=== PATIENT | male | born 1945 | race Caucasian/White ===

== ENCOUNTER → 2017-05-28 09:40 | Outpatient (CLI) | payer MEDICARE, OTHER | END | disposition home or self-care (01) | LOC: D.CT 09:40 | DX: R10.9 Unspecified abdominal pain (principal); R10.2 Pelvic and perineal pain ==

== ENCOUNTER 2018-04-09 07:56 | Inpatient (IN) | payer MEDICARE, OTHER ==
[~2018-04-09] VITALS: Ht 180.3 cm; Wt 97.2 kg
--- NOTE | ~2018-04-09 | OP ---
PATIENT NAME: CAMILO FARIAS MEDICAL RECORD: [id number] :49 LOCATION:[facility] D.CV03 ADMISSION DATE:04/09/18 SURGEON: VISHAL CALLES MD DATE OF OPERATION: 04/13/2018 SURGEON: Vishal Calles MD ANESTHESIA: General endotracheal, Mor Tejada MD OPERATIONS PERFORMED: Coronary artery bypass utilizing left internal thoracic, left anterior descending, reverse saphenous vein segment to the first diagonal, reverse saphenous vein segment to the obtuse marginal, and reverse saphenous vein segment to the posterolateral branch of the right coronary artery. 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 INDICATIONS FOR OPERATION: Angina pectoris, compelling anatomy. FINDINGS AT OPERATION: The left internal thoracic and reverse saphenous vein graft from the right leg were excellent conduits. The target vessels were of good caliber and quality. ESTIMATED BLOOD LOSS: Cell Saver was used. DESCRIPTION OF PROCEDURE: After informed consent, adequate preoperative medication, and evaluation, the patient was brought to the operating room and placed on the table in supine position. After induction of general endotracheal anesthesia and application of appropriate monitoring devices, chest, neck, abdomen, and both legs were prepped and draped in sterile field utilizing Betadine scrub, alcohol, and Betadine solution. Betadine-impregnated drape was also used. Saphenous vein was harvested from right leg and prepared for reverse saphenous vein grafting. Leg was closed over drains utilizing 3-0 Vicryl and skin tommy. Median sternotomy incision was used and dissection was carried down to the fascia. Hemostasis was maintained with electrocautery. Sternum was divided. Innominate vein was identified and protected. Left internal thoracic was taken down and prepared for grafting. The patient was given a calculated dose of heparin and cannulated in a standard fashion utilizing one aortic, one 2-stage cannula in atrium and inferior vena cava. The patient was placed on cardiopulmonary bypass and cooled to 32 degrees centigrade. A cross-clamp was placed just proximal to the aortic cannula and the patient was given cardioplegic solution through the aortic root. The patient was given cold induction and cold maintenance. The patient was given cold intermittent cardioplegic solution throughout the procedure through the root, through the grafts, or combination of both. The first vessel to be grafted was the posterolateral branch of the right. It was grafted end-to-side utilizing running 7-0 Prolene suture. Graft was measured back to the aorta and a proximal anastomosis was fashioned utilizing running 6-0 Prolene suture. Next, the second obtuse marginal was grafted end-to-side utilizing running 7-0 Prolene suture. The graft was measured back to the aorta and a proximal anastomosis was fashioned utilizing running 6-0 Prolene suture. OPERATIVE REPORT [id number] CAMILO FARIAS Next, the first diagonal was grafted end-to-side utilizing running 7-0 Prolene suture. The graft was measured back to the aorta and a proximal anastomosis was fashioned utilizing running 6-0 Prolene suture. Next, left internal thoracic was brought through a hole in pericardium, sutured to left anterior descending end-to-side utilizing running 8-0 Prolene suture. Pedicle was attached to epicardium with 6-0 Prolene suture. All maneuvers to remove trapped air from heart were performed. The patient was given warm cardioplegic reperfusion and controlled reperfusion. The patient was rewarmed to 37 degrees centigrade. Two atrial and two ventricular pacing wires were placed on the heart and brought through the epigastric area. The patient was weaned from cardiopulmonary bypass. After being stable off bypass, given calculated dose of protamine to reverse the heparin. Chest and mediastinum were irrigated with copious amounts of antibiotic solution and normal saline. There was no active bleeding. A #40 right angle and a #36 chest tubes were brought in through the epigastric area and placed in the mediastinum. A separate left Satya tube was placed to suction drainage. Chest was again irrigated. Instrument and sponge counts were correct times 2. Chest was closed in layers utilizing #7 wire on the sternum, #2 Vicryl on linea alba and pectoralis fascia. Subcutaneous tissue was approximated with 3-0 Vicryl and skin was approximated with 3-0 subcuticular Vicryl. Sterile dressings were applied. The patient tolerated the procedure well and was transferred to cardiovascular recovery in stable condition. TRANSINT:[id number] Voice Confirmation ID: [id number] DOCUMENT ID: [id number] VISHAL CALLES MD at 1234 CC: [id number] DICTATION DATE: 04/13/18 5430 STRIPER SPRAY GUN: 04/13/18 2553 DIS IN 04/21/18 [facility] [address] [place] [address]
--- NOTE | ~2018-04-09 | HEMODYNAMI ---
PATIENT:CAMILO FARIAS MEDICAL RECORD: [id number] : 49 LOCATION:[facility] ADMISSION DATE: 04/09/18 Generatedon:04/09/201811:20 Patient name: CAMILO FARIAS Patient #: [id number] SSN: : 1945 Date of study: 04/09/2018 Page: Of Hemodynamic Procedure Report Patient Data Patient Demographics Procedure consent was obtained First Name: CAMILO Gender: Male Last Name: JARRETT : 1945 [facility] Initial: CAMERON Age: 72 year(s) Patient #: [id number] Race: Unknown Additional ID: [id number] Contact details [address]: [address] [place] [address] DRIVE State: [place] City: [facility] Zip code: [address] Past Medical History Allergies Allergen Reaction Date Comments Reported Other allergy 04/09/2018 amoxicillin Admission Admission Data Admission Date: 04/09/2018 Admission Time: 7:56 Admit Source: Other Lab Results Lab Result Date: 04/09/2018 Lab Result Time: 9:19 Biochemistry Name Units Result Min Max BUN mg/dl 14 --(--*-)-- 7 18 Creatinine mg/dl 1 --(--*-)-- 0.6 1.3 CBC Name Units Result Min Max Hematocrit % 47.8 --(-*--)-- 42 54 Hemoglobin g/dl 16.5 --(--*-)-- 13.5 17.5 Procedure Procedure Types Cath Procedure Diagnostic Procedure LHC LHC w/Coronaries Procedure Description Procedure Date Procedure Date: 04/09/2018 Procedure Start Time: 10:59 Procedure End Time: 11:16 Procedure Staff Name Function Ruben Charles MD Performing Physician Candelario Akhtar RT Monitor Christ Kumar RT Scrub Stanley Ramsey RN Nurse Procedure Data Cath Procedure Fluoroscopy Diagnostic fluoroscopy Total fluoroscopy Time: 7.5 time: 7.5 min min Diagnostic fluoroscopy Total fluoroscopy dose: dose: 348.45 mGy 348.45 mGy Contrast Material Contrast Material Type Amount (ml) Isovue 300 94 Entry Location Entry Primary Successful Side Size Upsize Upsize Entry Closure Hart ccessful Closure Location (Fr) 1 (Fr) 2 (Fr) Remarks Device Remarks Radial Right 6 Fr Mechanical artery Short Compression Estimated blood loss: 5 ml Diagnostic catheters Device Type Used For End Catheter Placement DIAGNOSTIC Brocket 110cm 5 Procedure Fr catheter ([id number]) DIAGNOSTIC AR MOD 5Fr Procedure Catheter ([id number]) Procedure Complications No complications Procedure Medications Medication Administration Route Dosage Oxygen etCO2 Nasal cannula 2 l/min Heparin Flush Bag added to field 2 bags (1000units/500ml NS) 0.9% NaCl I.V. 100 ml/hr Radial Cocktail added to field 1 syringe (Verapomil 2mg/Nitro 400mcg/Heparin 1500units) Fentanyl I.V. 50 mcg Versed I.V. 1 mg Fentanyl I.V. 50 mcg Versed I.V. 1 mg Radial Cocktail I.A. 1 syringe (Verapomil 2mg/Nitro 400mcg/Heparin 1500units) Hemodynamics Rest HGB: 16.5 (g/dl) Heart Rate: 48 (bpm) Pressure Samples Time Site Value (mmHg) Purpose Heart Use Rate(bpm) 11:04 LV 104/9,21 EDP 45 Gradients Valve Time Site Site Mean SEP/DFP Peak To Heart Use 1 2 (mmHg) (sec/min) Peak Rate (mmHg) (bpm) Aortic 11:04 LV AO 62 Snapshots Pre Cath Intra NCS Post Cath Vital Signs Time Heart Resp SPO2 etCO2 NIBP (mmHg) Rhythm Pain Sedation Rate (ipm) (%) (mmHg) Status Level (bpm) 10:41:57 57 17 99 0 158/77(129) NSR 0 (11) 10(A) , No pain 10:46:11 49 16 94 36 144/75(117) NSR 0 (11) 10(A) , No pain 10:50:27 45 16 96 36 133/77(106) NSR 0 (11) 10(A) , No pain 10:54:48 47 16 97 36.8 129/69(99) NSR 0 (11) 10(A) , No pain 10:59:02 45 16 95 33.8 118/70(98) NSR 0 (11) 10(A) , No pain 11:03:20 48 16 97 30 96/60(78) NSR 0 (11) 9(A) , No pain 11:07:27 46 17 95 21 103/60(84) NSR 0 (11) 9(A) , No pain 11:12:26 48 16 96 43.5 115/67(95) NSR 0 (11) 9(A) , No pain 11:16:39 50 16 96 37.5 121/69(101) NSR 0 (11) 9(A) , No pain Medications Time Medication Route Dose Verified Delivered Reason Notes Effectiveness by by 10:43:48 Oxygen etCO2 2 l/min Ruben Stanley Per Nasal Araceli Ramsey RN physician cannula 10:43:57 Heparin Flush added 2 bags Ruben Stanley used for Bag to Araceli Ramsey RN procedure (1000units/500ml field YEBOAH NS) 10:44:07 0.9% NaCl I.V. 100 Ruben Stanley Per ml/hr Araceli Ramsey RN physician 10:44:15 Radial Cocktail added 1 Ruben Stanley used for (Verapomil to syringe Araceli Ramsey RN procedure 2mg/Nitro field YEBOAH 400mcg/Heparin 1500units) 10:56:18 Fentanyl I.V. 50 mcg Ruben Stanley for sedation Araceli Ramsey RN, MD 10:56:26 Versed I.V. 1 mg Ruben Stanley for sedation Araceli Ramsey RN, MD 10:59:20 Fentanyl I.V. 50 mcg Ruben Stanley for sedation Araceli Ramsey RN, MD 10:59:23 Versed I.V. 1 mg Ruben Stanley for sedation Araceli Ramsey RN, MD 11:01:31 Radial Cocktail I.A. 1 Ruben Ruben for (Verapomil syringe Araceli Charles MD vasodilation 2mg/Lana YEBOAH 400mcg/Heparin 1500units) Procedure Log Time Note 10:20:23 Christ EL(R) sent for patient. Start room use. 10:34:05 Informed consent obtained and on chart 10:34:08 Admit Source: Other 10:34:22 Diagnostic Cath status Elective 10:34:28 Time tracking: Regular hours (M-F 7:00 - 5:00) 10:34:32 Plan of Care:Hemodynamics will remain stable., Cardiac rhythm will remain stable., Comfort level will be maintained., Respiratory function will remain adequate., Patient/ family verbilizes understanding of procedure., Procedure tolerated without complication., Recovers from procedure without complications.. 10:34:37 Patient received from Pre/Post Procedure Room to CCL 3 Alert and oriented. Tansferred to table in Supine position. 10:34:38 Warm blankets applied, and nicole hugger turned on for patient comfort. 10:34:38 Correct patient and procedure confirmed by team. 10:34:39 ECG and BP/O2 sat monitors applied to patient. 10:40:44 Vital chart was started 10:43:48 Oxygen 2 l/min etCO2 Nasal cannula was administered by Stanley Ramsey RN; Per physician; 10:43:57 Heparin Flush Bag (1000units/500ml NS) 2 bags added to field was administered by Stanley Ramsey RN; used for procedure; 10:44:07 0.9% NaCl 100 ml/hr I.V. was administered by Stanley Ramsey RN; Per physician; 10:44:15 Radial Cocktail (Verapomil 2mg/Nitro 400mcg/Heparin 1500units) 1 syringe added to field was administered by Stanley Ramsey RN; used for procedure; 10:45:45 Baseline sample Acquired. 10:45:49 Rhythm: sinus rhythm 10:45:56 Full Disclosure recording started 10:46:07 H&P Date Dictated: 04/07/2018 Within 30 days and on chart., H&P Addendum completed by physician on day of procedure. (MUST COMPLETE FOR ALL OUTPATIENTS). 10:46:36 Pre-procedure instructions explained to patient. 10:46:37 Pre-op teaching completed and patient verbalized understanding. 10:46:38 Family in waiting room. 10:46:40 Patient NPO since Midnight. 10:46:54 Patient allergic to Other allergyamoxicillin 10:46:55 Is the patient allergic to Iodine/contrast media? No. 10:47:09 Is patient on blood thinner?Yes 10:47:17 ACC The patient was administered the following blood thiners within the last 24 hours: ACCPlavix 10:47:19 Patient diabetic? No. 10:47:22 Previous problem with sedation/anesthesia? No ? 10:47:23 Snore? Yes 10:47:24 Sleep apnea? No 10:47:25 Deviated septum? No 10:47:26 Opens mouth fully? Yes 10:47:26 Sticks out tongue? Yes 10:47:28 Airway obstruction? No ? 10:47:30 Dentures? No ? 10:47:32 Modified Luis's test Ulnar < 7 seconds 10:47:33 Patient pain scale 0/10 ?. 10:47:37 IV patent on arrival in left forearm with 0.9% NaCl at [facility]. 10:48:22 Lab Result : BUN 14 mg/dl 10:48:22 Lab Result : Hemoglobin 16.5 g/dl 10:48:22 Lab Result : Creatinine 1 mg/dl 10:48:22 Lab Result : Hematocrit 47.8 % 10:48:24 Lab results completed and on chart. 10:48:26 Right Radial & Right Groin area was prepped with chlora-prep and draped in sterile fashion 10:48:27 Alarms reviewed by R. N. 10:48:27 Sharps counted by scrub and verified by R.N. 10:48:30 Use device set Radial Dx or PCI 10:48:31 ACIST Syringe (18611) opened to sterile field. 10:48:32 Medline Cath Pack ([id number]) opened to sterile field. 10:48:34 Bag Decanter (2002) opened to sterile field. 10:48:35 ACIST Hand Control (25434) opened to sterile field. 10:48:36 ACIST Manifold (14730) opened to sterile field. 10:48:37 Tegaderm 4 x 4 (1626W) opened to sterile field. 10:48:38 MBrace Wrist Support ([id number]) opened to sterile field. 10:48:39 SHEATH 6Fr Prelude Radial ([id number]) opened to sterile field. 10:48:40 DIAGNOSTIC WIRE .035 260cm J wire (608651) opened to sterile field. 10:50:47 Physician paged 10:54:53 Physician arrived 10:54:53 --------ALL STOP TIME OUT------ 10:54:54 Final Timeout: patient, procedure, and site verified with staff and physician. All members of the team are in agreement. 10:54:56 Right Radial & Right Groin site verified by team. 10:54:59 Physical assessment completed. ASA score P 2 - A patient with mild systemic disease as per Ruben Charles MD. 10:55:01 Sedation plan: IV Moderate Sedation Medication:Versed, Fentanyl 10:56:18 Fentanyl 50 mcg I.V. was administered by Stanley Ramsey RN; for sedation; 10:56:26 Versed 1 mg I.V. was administered by Stanley Ramsey RN; for sedation; 10:57:40 Zero performed for pressure channel P1 10:59:20 Fentanyl 50 mcg I.V. was administered by Stanley Ramsey RN; for sedation; 10:59:23 Versed 1 mg I.V. was administered by Stanley Ramsey RN; for sedation; 10:59:31 Procedure started. 10:59:36 Local anesthetic to right radial artery with Lidocaine 2% by Ruben Charles MD.INITIAL ACCESS ONLY 10:59:44 A 6 Fr Short sheath was inserted into the Right Radial artery 11:01:30 A DIAGNOSTIC Brocket 110cm 5 Fr catheter ([id number]) was advanced over the wire and used for Procedure. 11:01:31 Radial Cocktail (Verapomil 2mg/Nitro 400mcg/Heparin 1500units) 1 syringe I.A. was administered by Ruben Charles MD; for vasodilation; 11:04:18 LV gram done using ARCE 11:04:20 Injector settings: Ml/sec: 10, Volume: 20, 11:04:28 EF : 65 % 11:04:34 LV hemodynamics recorded. 11:05:19 LCA angiography performed. 11:11:51 Catheter exchanged over wire. 11:12:11 A DIAGNOSTIC AR MOD 5Fr Catheter ([id number]) was advanced over the wire and used for Procedure. 11:13:12 RCA angiography performed. 11:13:39 Catheter removed. 11:13:48 TR BAND Standard ([id number]) opened to sterile field. 11:13:56 Sheath removed intact; hemostasis achieved with Mechanical Compression to the Right Radial artery. 11:13:58 Procedure ended.(Physican Out) 11:14:37 Fluoroscopy time 07.50 minutes. 11:14:57 Fluoroscopy dose: 348.45 mGy 11:14:57 Flurop Dose total: 348.45 11:15:01 Contrast amount:Isovue 300 94ml. 11:15:03 Sharps counted by scrub and verified by R.N. 11:15:05 TR band inflated with 12cc of air. 11:15:06 Insertion/operative site no bleeding no hematoma. 11:15:11 Post right radial artery:stable, soft, clean and dry 11:15:27 Post Procedure Pulses reassessed and unchanged 11:15:29 Post-procedure physical assessment completed. ASA score P 2 - A patient with mild systemic disease as per Ruben Charles MD. 11:15:31 Post procedure rhythm: unchanged. 11:15:33 Estimated blood loss: 5 ml 11:15:35 Post procedure instruction explained to patient.Patient verbalizes understanding. 11:15:35 Patient needs reinforcement of post procedure teaching. 11:16:27 Procedure and supply charges have been captured, reviewed, submitted and are correct. 11:16:29 Procedure Complication : No complications 11:16:30 Vital chart was stopped 11:16:31 See physician's report for complete and final results. 11:16:32 Report given to Pre/Post Procedure Room. 11:16:34 Patient transfered to Pre/Post Procedure Room with Stretcher. 11:16:36 Procedure ended. 11:16:36 Full Disclosure recording stopped 11:16:39 End room use (Document Last) Device Usage Item Name Manufacture Quantity Catalog Number Hospital Part Current M inimal Lot# / Charge Number Stock Stock Serial# Code ACIST Syringe Acist 1 13550 174926 373661 651925 2 0 (02148) [employer] Medline Cath Cardinal 1 [id number] 539074 94043 335472 5 Pack Health ([id number]) Bag Decanter Microtek 1 197989 61311 053196 5 (2001S) Medical Inc. ACIST Hand Acist 1 64270 807947 756518 834309 5 Control (38398) [employer] Inc ACIST Manifold Acist 1 03752 901106 556346 788514 5 (73451) Medical Systems Inc Tegaderm 4 x 4 3M 1 1626W 746148 383460 110733 5 (1626W) MBrace Wrist Advanced 1 [id number] 740876 92988 635901 5 Support Vascular ([id number]) Dynamics SHEATH 6Fr Merit 1 [id number] 090697 964158 188057 5 Prelude Radial Medical ([id number]) DIAGNOSTIC WIRE [facility] Terry 1 668788 932527 994442 583520 3 0 .035 260cm J wire (209478) DIAGNOSTIC Terumo 1 50-7211 636768 393225 544037 5 Brocket 110cm 5 Fr catheter (979034) DIAGNOSTIC AR Cardinal 1 [id number] 156896 823734 478896 1 5 MOD 5Fr Health Catheter (322459Y) TR BAND Terumo 1 [id number] 860003 015255 063135 4 0 Standard ([id number]) Signature Audit [place] Stage Time Signature Unsigned Intra-Procedure 04/09/2018 Candelario Akhtar 11:20:08 AM RT(R) Signatures Monitor : Candelario Akhtar RT Signature : Date : Time : [place] [id number] [place] [address]
--- NOTE | ~2018-04-09 | OP ---
PATIENT NAME: CAMILO FARIAS MEDICAL RECORD: [id number] :49 LOCATION:D.M2 D.2117 ADMISSION DATE:04/09/18 SURGEON: CHAD STONE MD DATE OF OPERATION: 04/09/2018 PROCEDURE: Left heart catheterization, LV gram, coronary angiogram. TRACK LINER OPERATOR: Chad Stone MD PROCEDURE IN DETAIL: The patient was brought to cardiac catheterization lab in stable condition. Both groins and right wrist were sterilely prepped and draped. The patient had a 6-Pakistani sheath placed in the right radial artery using modified Seldinger technique. We then utilized a 5-Pakistani diagnostic catheter to intubate the left ventricular cavity, the left coronary artery, and the right coronary artery respectively. HEMODYNAMICS: Left ventricular ejection fraction 60%. End-diastolic pressure is normal. There is no significant mitral regurgitation. There is no gradient across the aortic valve. FINDINGS: 1. The left main has distal 80% to 90% stenosis. 2. The LAD has diffuse atherosclerotic changes and moderate calcification in the mid vessel at 60% stenosis. The mid diagonal has an ostial 70% stenosis. 3. The circumflex is a nondominant vessel, giving rise to a terminal obtuse marginal branch that has superior and inferior branch. The superior branch has an ostial 80% stenosis. 4. The RCA is a 95% stenosis ostially. It looks like there may be a stent there, but it is hard to tell if that is stent or calcification, fairly significant calcification. In the mid vessel, it is heavily calcified with an 80% stenosis. Posterior descending artery itself appears to be free of significant disease. The posterolateral branch has an ostial 60% to 70% stenosis. IMPRESSION: Severe multivessel coronary artery disease including left main disease. RECOMMENDATION: Coronary artery bypass grafting. The patient has preserved LV systolic function. Ejection fraction 60%. Dr. Calles has been contacted. We are going to decide whether to keep him through the hospitalization to do the surgery or whether to be able to send him home. TRANSINT:[id number] Voice Confirmation ID: [id number] DOCUMENT ID: [id number] CHAD STONE MD at 1011 CC: [id number] DICTATION DATE: 04/09/18 1128 HUMAN RESOURCES RECORDS CLERK: 04/09/18 1202 ADM IN [facility] [address] [place] [address]
--- NOTE | ~2018-04-09 | TEE ---
PATIENT:CAMILO FARIAS MEDICAL RECORD: [id number] LOCATION:[place] [address] AGE OF PATIENT: 72 ADMISSION DATE: 04/09/18 SEX: M REFERRING PHYSICIAN: INTERPRETING PHYSICIAN: CHAD STONE MD TRANSESOPHAGEAL ECHOCARDIOGRAM Date: 04/13/18 CRYSTAL CHARGE Y INDICATIONS: CABG PREMEDICATIONS: PATIENT'S RESPONSE PROCEDURE DOPPLER MEASUREMENTS: LVIT LA PA RA LVOT RVOT Asc. Ao AV Gradient Peak AV Mean AV Area MV Gradient Peak MV Mean MV Area INTERPRETATION: LVd: 4.8 cm LVs: 3.0 cm Doppler: 2-D: COLOR FLOW DOPPLER NORMAL SALINE STUDY: MISCELLANOUS: DIAGNOSIS: PLAN: Brokerage Office Manager:4 Dr. Stone Antitank Assault Gunner: Saundra ALVARENGA COMMENTS: DATE OF SERVICE: PROCEDURE: Intraoperative transesophageal echocardiogram. FINDINGS: The pictures show catheter artifact in the right atrium and right ventricle. The right atrium and right ventricle are mildly dilated. Aortic valve appears to be normal structure and function. The left ventricle also appears to be normal structure and function. There is no evidence of regional wall motion abnormalities. The postoperative ejection fraction is difficult to TRANSESOPHAGEAL ECHOCARDIOGRAM REPORT [id number] CAMILO FARIAS visualize, but appears to be hyperdynamic with an ejection fraction of 65% to 70%. TRANSINT:[id number] Voice Confirmation ID: [id number] DOCUMENT ID: [id number] at 1458 CC: [id number] DICTATION DATE: 04/14/18 0842 OCCUPATIONAL THERAPY INSTRUCTOR: 04/14/18 0912 ADM IN [place] [id number] [place] [address]
[2018-04-09] MEDS ORDERED: RESTORIL15 MG PO (09:20)
[2018-04-09] MEDS ORDERED: BAYER CHEWABLE81 MG PO (09:20)
[2018-04-09] MEDS ORDERED: NORVASC10 MG PO (09:21)
[2018-04-09] MEDS ORDERED: PRAVACHOL20 MG PO (09:21)
[2018-04-09] MEDS ORDERED: ZEBETA10 MG PO (09:21)
[2018-04-09 09:22] LABS: BASOPHILS 0.2 % (0-2); EOSINOPHILS 3.3 % (0-7); HEMATOCRIT 47.8 % (42.0-54.0); HEMOGLOBIN 16.5 g/dL (13.5-17.5); IMMATURE GRANULOCYTES 0.7 % (0-5); LYMPHOCYTES 27.4 % (15-50); MCH 29.3 pg (26.0-34.0); MCHC 34.5 g/dL (31.0-37.0); MCV 84.9 fL (80.0-100.0); MEAN PLATELET VOLUME 10.2 fL (7.4-10.4); MONOCYTES 11.7 % (2-11); NEUTROPHILS 56.7 % (40-80); PLATELET COUNT 164 10x3/uL (130-400); RBC 5.63 10x6/uL (4.20-6.10); RDW 12.9 % (11.5-14.5); WBC 8.8 10x3/uL (4.8-10.8)
[2018-04-09 09:26] VITALS: BP 158/75; BMI 29.3
[2018-04-09 09:37] LABS: CALC OSMOLALITY 277 mosm/kg (275-300); CALCIUM 8.8 mg/dL (8.5-10.1); CARBON DIOXIDE 28.7 mmol/L (21.0-32.0); CHLORIDE - SERUM 104 mmol/L (98-107); GLUCOSE 117 mg/dL (74-106); POTASSIUM - SERUM 4.1 mmol/L (3.5-5.1); SODIUM 138 mmol/L (136-145); UREA NITROGEN 14 mg/dL (7-18); eGFR NON AFRICAN AMERICAN 78 mL/min (90-120)
[2018-04-09 13:34] VITALS: BP 144/74; BMI 29.3
[2018-04-09 16:21] VITALS: BP 142/72
[2018-04-09 21:09] VITALS: BP 134/77
[2018-04-10 05:48] LABS: BASOPHILS 0.2 % (0-2); EOSINOPHILS 3.7 % (0-7); HEMATOCRIT 44.6 % (42.0-54.0); HEMOGLOBIN 14.8 g/dL (13.5-17.5); IMMATURE GRANULOCYTES 0.7 % (0-5); LYMPHOCYTES 22.6 % (15-50); MCH 28.5 pg (26.0-34.0); MCHC 33.2 g/dL (31.0-37.0); MCV 85.8 fL (80.0-100.0); MEAN PLATELET VOLUME 10.6 fL (7.4-10.4); MONOCYTES 12.8 % (2-11); PLATELET COUNT 138 10x3/uL (130-400); RDW 12.8 % (11.5-14.5); WBC 8.4 10x3/uL (4.8-10.8)
[2018-04-10 05:50] VITALS: BP 139/77
[2018-04-10 05:51] LABS: APTT 26.7 SECONDS (22.8-39.4); INR 1.11 (0.85-1.17); PROTIME 13.9 SECONDS (11.6-15.0)
[2018-04-10 06:13] LABS: ALBUMIN 3.3 g/dL (3.4-5.0); ANION GAP 8.1 mmol/L (8-16); BILIRUBIN - TOTAL 0.99 mg/dL (0.2-1.3); CALCIUM 8.1 mg/dL (8.5-10.1); CARBON DIOXIDE 29.1 mmol/L (21.0-32.0); CREATININE - SERUM 1.1 mg/dL (0.6-1.3); PHOSPHOROUS 3.1 mg/dL (2.5-4.9); POTASSIUM - SERUM 4.2 mmol/L (3.5-5.1); PROTEIN - SERUM 6.3 g/dL (6.4-8.2); T4 THYROXIN - FREE 0.88 ng/dL (0.76-1.46); THYROID STIMULATING HORMONE 2.02 uIU/mL (0.36-3.74); URIC ACID 5.6 mg/dL (2.6-7.2)
[2018-04-10 08:25] VITALS: BP 131/68
[2018-04-10 10:05] VITALS: BMI 28.6
[2018-04-10 11:24] VITALS: Ht 180.3 cm; Wt 97.2 kg
[2018-04-10 11:43] VITALS: BP 146/69
[2018-04-10 14:16] LABS: APPEARANCE CLEAR (CLEAR); COLOR YELLOW (YELLOW)
[2018-04-10 14:17] LABS: BILIRUBIN NEGATIVE (NEGATIVE); GLUCOSE NEGATIVE (NEGATIVE); KETONE NEGATIVE (NEGATIVE); NITRITE NEGATIVE (NEGATIVE); PROTEIN NEGATIVE (NEGATIVE); UROBILINOGEN NORMAL (NORMAL)
[2018-04-10 14:18] LABS: AMORPHOUS SEDIMENT <1+ /lpf (NONE SEEN); MUCUS <1+ /lpf (NONE SEEN)
[2018-04-10 15:10] VITALS: BP 136/71
[2018-04-10 20:00] VITALS: BP 136/70
[2018-04-11] VITALS: BP 129/64
[2018-04-11 04:00] VITALS: BP 106/82
[2018-04-11 08:09] VITALS: BP 163/76
[2018-04-11 08:36] LABS: PLT FUNCT.(P2Y12) PLAVIX 182 PRU (194-418)
[2018-04-11 11:46] VITALS: BP 153/75
[2018-04-11 15:14] VITALS: BP 141/69
[2018-04-11 20:01] VITALS: BP 113/68
[2018-04-12] VITALS (7 sets, daily range): BP systolic 115–146; BP diastolic 67–79
[2018-04-13] VITALS (39 sets, daily range): BP systolic 91–146; BP diastolic 51–77
[2018-04-13 07:51] LABS: PLT FUNCT.(P2Y12) PLAVIX 257 PRU (194-418)
[2018-04-13 14:18] LABS: HEMATOCRIT 34.2 % (42.0-54.0); HEMOGLOBIN 11.8 g/dL (13.5-17.5); MCH 28.9 pg (26.0-34.0); MCHC 34.5 g/dL (31.0-37.0); MCV 83.6 fL (80.0-100.0); MEAN PLATELET VOLUME 9.9 fL (7.4-10.4); RBC 4.09 10x6/uL (4.20-6.10); RDW 12.7 % (11.5-14.5); WBC 16.7 10x3/uL (4.8-10.8)
[2018-04-13 14:29] LABS: CHLORIDE - SERUM 111 mmol/L (98-107); POTASSIUM - SERUM 4.1 mmol/L (3.5-5.1); SODIUM 146 mmol/L (136-145); UREA NITROGEN 16 mg/dL (7-18); eGFR NON AFRICAN AMERICAN 78 mL/min (90-120)
[2018-04-13 14:36] LABS: CALC OSMOLALITY 296 mosm/kg (275-300); GLUCOSE 192 mg/dL (74-106)
[2018-04-13 14:38] LABS: CALCIUM 6.5 mg/dL (8.5-10.1)
[2018-04-13 14:41] LABS: INR 1.67 (0.85-1.17); PROTIME 18.8 SECONDS (11.6-15.0)
[2018-04-13 14:58] LABS: APTT 39.1 SECONDS (22.8-39.4)
[2018-04-14] VITALS (94 sets, daily range): BP systolic 92–137; BP diastolic 48–76
[2018-04-14 06:24] LABS: MCH 28.5 pg (26.0-34.0); MCHC 33.3 g/dL (31.0-37.0); MEAN PLATELET VOLUME 10.3 fL (7.4-10.4); PLATELET COUNT 85 10x3/uL (130-400); RDW 13.4 % (11.5-14.5)
[2018-04-14 06:37] LABS: HEMATOCRIT 26.7 % (42.0-54.0); HEMOGLOBIN 8.9 g/dL (13.5-17.5); MCV 85.6 fL (80.0-100.0); RBC 3.12 10x6/uL (4.20-6.10); WBC 10.4 10x3/uL (4.8-10.8)
[2018-04-14 06:44] LABS: ALBUMIN 3.6 g/dL (3.4-5.0); ANION GAP 11.7 mmol/L (8-16); BILIRUBIN - TOTAL 0.95 mg/dL (0.2-1.3); CALCIUM 7.9 mg/dL (8.5-10.1); CARBON DIOXIDE 27.9 mmol/L (21.0-32.0); POTASSIUM - SERUM 4.6 mmol/L (3.5-5.1); PROTEIN - SERUM 5.1 g/dL (6.4-8.2)
[2018-04-14 06:46] LABS: CREATININE - SERUM 1.4 mg/dL (0.6-1.3)
[2018-04-14 07:56] LABS: PLATELET ESTIMATE DECREASED
[2018-04-14 16:22] LABS: HEMOGLOBIN 9.1 g/dL (13.5-17.5); MCH 28.4 pg (26.0-34.0); MCHC 32.5 g/dL (31.0-37.0); MCV 87.5 fL (80.0-100.0); MEAN PLATELET VOLUME 10.4 fL (7.4-10.4); RBC 3.2 10x6/uL (4.20-6.10); RDW 13.6 % (11.5-14.5)
[2018-04-14 16:25] LABS: WBC 15.9 10x3/uL (4.8-10.8)
[2018-04-14 16:36] LABS: CALCIUM 7.5 mg/dL (8.5-10.1); CARBON DIOXIDE 28.5 mmol/L (21.0-32.0); CREATININE - SERUM 1.6 mg/dL (0.6-1.3); POTASSIUM - SERUM 4.5 mmol/L (3.5-5.1)
[2018-04-15] VITALS (48 sets, daily range): BP systolic 95–138; BP diastolic 61–81
[2018-04-15 06:33] LABS: ALBUMIN 3.4 g/dL (3.4-5.0); ANION GAP 15.3 mmol/L (8-16); BILIRUBIN - TOTAL 0.6 mg/dL (0.2-1.3); CALCIUM 7.9 mg/dL (8.5-10.1); POTASSIUM - SERUM 4.3 mmol/L (3.5-5.1); PROTEIN - SERUM 5.6 g/dL (6.4-8.2)
[2018-04-15 06:37] LABS: CREATININE - SERUM 2.2 mg/dL (0.6-1.3)
[2018-04-15 06:50] LABS: HEMATOCRIT 28.5 % (42.0-54.0); HEMOGLOBIN 9.4 g/dL (13.5-17.5); MCH 28.6 pg (26.0-34.0); MCV 86.6 fL (80.0-100.0); MEAN PLATELET VOLUME 10.7 fL (7.4-10.4); RBC 3.29 10x6/uL (4.20-6.10); RDW 13.7 % (11.5-14.5); WBC 20.1 10x3/uL (4.8-10.8)
[2018-04-16] VITALS (26 sets, daily range): BP systolic 104–144; BP diastolic 57–84
[2018-04-16 06:10] LABS: HEMATOCRIT 25.5 % (42.0-54.0); HEMOGLOBIN 8.6 g/dL (13.5-17.5); MCH 28.7 pg (26.0-34.0); MCHC 33.7 g/dL (31.0-37.0); MEAN PLATELET VOLUME 10.7 fL (7.4-10.4); RDW 13.5 % (11.5-14.5); WBC 15.8 10x3/uL (4.8-10.8)
[2018-04-16 06:30] LABS: ALBUMIN 2.9 g/dL (3.4-5.0); ANION GAP 10.9 mmol/L (8-16); BILIRUBIN - TOTAL 0.97 mg/dL (0.2-1.3); CALCIUM 7.4 mg/dL (8.5-10.1); CARBON DIOXIDE 27.1 mmol/L (21.0-32.0); PROTEIN - SERUM 5.2 g/dL (6.4-8.2)
[2018-04-16 06:34] LABS: CREATININE - SERUM 1.5 mg/dL (0.6-1.3)
[2018-04-17] VITALS (24 sets, daily range): BP systolic 104–141; BP diastolic 61–87
[2018-04-17 06:15] LABS: ALBUMIN 2.8 g/dL (3.4-5.0); ANION GAP 10.3 mmol/L (8-16); BILIRUBIN - TOTAL 1.28 mg/dL (0.2-1.3); CALCIUM 7.3 mg/dL (8.5-10.1); CREATININE - SERUM 1.4 mg/dL (0.6-1.3); POTASSIUM - SERUM 4.3 mmol/L (3.5-5.1); PROTEIN - SERUM 5.3 g/dL (6.4-8.2)
[2018-04-17 07:39] LABS: HEMOGLOBIN 8.7 g/dL (13.5-17.5); MCH 28.6 pg (26.0-34.0); MCHC 33.5 g/dL (31.0-37.0); MCV 85.5 fL (80.0-100.0); MEAN PLATELET VOLUME 11.2 fL (7.4-10.4); RBC 3.04 10x6/uL (4.20-6.10); RDW 13.7 % (11.5-14.5); WBC 17.1 10x3/uL (4.8-10.8)
[2018-04-18] VITALS (24 sets, daily range): BP systolic 110–138; BP diastolic 56–85
[2018-04-18 06:04] LABS: HEMATOCRIT 25.6 % (42.0-54.0); HEMOGLOBIN 8.5 g/dL (13.5-17.5); MCH 28.4 pg (26.0-34.0); MCHC 33.2 g/dL (31.0-37.0); MCV 85.6 fL (80.0-100.0); MEAN PLATELET VOLUME 9.4 fL (7.4-10.4); RBC 2.99 10x6/uL (4.20-6.10); RDW 13.5 % (11.5-14.5); WBC 15.1 10x3/uL (4.8-10.8)
[2018-04-18 06:47] LABS: ALBUMIN 2.5 g/dL (3.4-5.0); BILIRUBIN - TOTAL 1.31 mg/dL (0.2-1.3); CALCIUM 7.2 mg/dL (8.5-10.1); CARBON DIOXIDE 28.5 mmol/L (21.0-32.0); CREATININE - SERUM 1.3 mg/dL (0.6-1.3); PROTEIN - SERUM 5.1 g/dL (6.4-8.2)
[2018-04-18 06:48] LABS: ANION GAP 10.1 mmol/L (8-16); POTASSIUM - SERUM 3.6 mmol/L (3.5-5.1)
[2018-04-19] VITALS (24 sets, daily range): BP systolic 90–135; BP diastolic 56–86
[2018-04-19 06:35] LABS: HEMATOCRIT 25.7 % (42.0-54.0); HEMOGLOBIN 8.3 g/dL (13.5-17.5); MCHC 32.3 g/dL (31.0-37.0); MCV 86.8 fL (80.0-100.0); MEAN PLATELET VOLUME 9.7 fL (7.4-10.4); RBC 2.96 10x6/uL (4.20-6.10); RDW 13.7 % (11.5-14.5); WBC 12.3 10x3/uL (4.8-10.8)
[2018-04-19 06:52] LABS: ALBUMIN 2.4 g/dL (3.4-5.0); BILIRUBIN - TOTAL 1.26 mg/dL (0.2-1.3); CARBON DIOXIDE 29.3 mmol/L (21.0-32.0); CREATININE - SERUM 1.3 mg/dL (0.6-1.3); POTASSIUM - SERUM 3.3 mmol/L (3.5-5.1)
[2018-04-19 06:53] LABS: CALCIUM 6.9 mg/dL (8.5-10.1)
[2018-04-20] VITALS (23 sets, daily range): BP systolic 94–152; BP diastolic 55–80
[2018-04-20 06:15] LABS: HEMATOCRIT 25.1 % (42.0-54.0); HEMOGLOBIN 8.2 g/dL (13.5-17.5); MCH 28.3 pg (26.0-34.0); MCHC 32.7 g/dL (31.0-37.0); MCV 86.6 fL (80.0-100.0); MEAN PLATELET VOLUME 9.3 fL (7.4-10.4); RBC 2.9 10x6/uL (4.20-6.10); RDW 13.8 % (11.5-14.5); WBC 11.9 10x3/uL (4.8-10.8)
[2018-04-20 06:32] LABS: ALBUMIN 2.2 g/dL (3.4-5.0); ANION GAP 8.1 mmol/L (8-16); BILIRUBIN - TOTAL 1.15 mg/dL (0.2-1.3); CARBON DIOXIDE 30.1 mmol/L (21.0-32.0); CREATININE - SERUM 1.2 mg/dL (0.6-1.3); POTASSIUM - SERUM 3.2 mmol/L (3.5-5.1)
[2018-04-20 06:33] LABS: CALCIUM 6.9 mg/dL (8.5-10.1)
[2018-04-21] VITALS (10 sets, daily range): BP systolic 104–138; BP diastolic 6–76
[2018-04-21 05:57] LABS: BASOPHILS 0.2 % (0-2); EOSINOPHILS 2.8 % (0-7); HEMOGLOBIN 9.3 g/dL (13.5-17.5); IMMATURE GRANULOCYTES 7.5 % (0-5); LYMPHOCYTES 11.7 % (15-50); MCH 28.7 pg (26.0-34.0); MCHC 33.2 g/dL (31.0-37.0); MCV 86.4 fL (80.0-100.0); MEAN PLATELET VOLUME 9.2 fL (7.4-10.4); MONOCYTES 11.3 % (2-11); NEUTROPHILS 66.5 % (40-80); RBC 3.24 10x6/uL (4.20-6.10); RDW 14.1 % (11.5-14.5)
[2018-04-21 05:58] LABS: PLATELET COUNT 300 10x3/uL (130-400)
[2018-04-21 06:16] LABS: ANION GAP 8.9 mmol/L (8-16); CALCIUM 7.3 mg/dL (8.5-10.1); CARBON DIOXIDE 27.2 mmol/L (21.0-32.0); CREATININE - SERUM 1.1 mg/dL (0.6-1.3); POTASSIUM - SERUM 4.1 mmol/L (3.5-5.1)
[2018-04-21] MEDS ORDERED: HEMOCYTE PLUS C1 CAP PO (09:44)
[2018-04-21] MEDS ORDERED: CORDARONE200 MG PO (09:48)
[2018-04-21] MEDS ORDERED: LASIX40 MG PO (09:48)
[2018-04-21] MEDS ORDERED: COLACE100 MG PO (09:49)
[2018-04-21] MEDS ORDERED: K-DUR20 MEQ PO (09:49)
[2018-04-21] MEDS ORDERED: LEVAQUIN750 MG PO (09:50)
[2018-04-21] MEDS ORDERED: ULTRAM50 MG PO (09:51)
== END 2018-04-21 11:34 | disposition home or self-care (01) | DRG 234 ==
LOC: D.M2 07:56 → D.CATH 07:56 → D.M2 13:05 → D.CATH 16:17 → D.CVICU 16:17 → D.SDCHOLD 04-11 02:18 → D.M2 04-11 02:18 → D.CVICU 04-13 10:46
PROVIDERS: Internal Medicine Cardiovascular Disease
PROC: B2151ZZ Fluoroscopy of Left Heart using Low Osmolar Contrast (ICD-10-PCS; 2018-04-09)
PROC: 4A023N7 Measurement of Cardiac Sampling and Pressure, Left Heart, Percutaneous Approach (ICD-10-PCS; 2018-04-09)
PROC: B2111ZZ Fluoroscopy of Multiple Coronary Arteries using Low Osmolar Contrast (ICD-10-PCS; principal; 2018-04-09 10:00)
PROC: 02100ZC Bypass Coronary Artery, One Artery from Thoracic Artery, Open Approach (ICD-10-PCS; 2018-04-13)
PROC: 021209W Bypass Coronary Artery, Three Arteries from Aorta with Autologous Venous Tissue, Open Approach (ICD-10-PCS; 2018-04-13)
PROC: 06BP0ZZ Excision of Right Saphenous Vein, Open Approach (ICD-10-PCS; 2018-04-13)
PROC: 5A1221Z Performance of Cardiac Output, Continuous (ICD-10-PCS; 2018-04-13)
PROC: B24BZZ4 Ultrasonography of Heart with Aorta, Transesophageal (ICD-10-PCS; 2018-04-13)
DX: I25.119 Atherosclerotic heart disease of native coronary artery with unspecified angina pectoris (principal); E87.0 Hyperosmolality and hypernatremia; I10 Essential (primary) hypertension; R51 Headache; R41.0 Disorientation, unspecified; I48.0 Paroxysmal atrial fibrillation

== ENCOUNTER 2018-04-26 02:20 | Emergency (ER) | payer MEDICARE, OTHER ==
[~2018-04-26] VITALS: Ht 180.3 cm; Wt 89.2 kg
[~2018-04-26 02:20] MED LIST: BAYER CHEWABLE81 MG PO; COLACE100 MG PO; CORDARONE200 MG PO; HEMOCYTE PLUS C1 CAP PO; K-DUR20 MEQ PO; LASIX40 MG PO; LEVAQUIN750 MG PO; NORVASC10 MG PO; PRAVACHOL20 MG PO; RESTORIL15 MG PO; ULTRAM50 MG PO; ZEBETA10 MG PO
[2018-04-26 02:25] VITALS: Ht 180.3 cm; Wt 89.2 kg
[2018-04-26] MEDS ORDERED: BACTRIM DS TABL1 TAB PO (02:28)
[2018-04-26 03:25] LABS: BASOPHILS 0.2 % (0-2); EOSINOPHILS 3.5 % (0-7); HEMATOCRIT 32.7 % (42.0-54.0); HEMOGLOBIN 10.6 g/dL (13.5-17.5); IMMATURE GRANULOCYTES 3.2 % (0-5); LYMPHOCYTES 8.5 % (15-50); MCH 28.3 pg (26.0-34.0); MCHC 32.4 g/dL (31.0-37.0); MCV 87.2 fL (80.0-100.0); MEAN PLATELET VOLUME 8.7 fL (7.4-10.4); MONOCYTES 12.1 % (2-11); NEUTROPHILS 72.5 % (40-80); PLATELET COUNT 344 10x3/uL (130-400); RBC 3.75 10x6/uL (4.20-6.10); RDW 14.6 % (11.5-14.5); WBC 13.4 10x3/uL (4.8-10.8)
[2018-04-26 03:31] LABS: ALBUMIN 2.6 g/dL (3.4-5.0); ANION GAP 11.3 mmol/L (8-16); BILIRUBIN - TOTAL 0.52 mg/dL (0.2-1.3); CALCIUM 7.5 mg/dL (8.5-10.1); CARBON DIOXIDE 25.5 mmol/L (21.0-32.0); CREATININE - SERUM 1.4 mg/dL (0.6-1.3); POTASSIUM - SERUM 4.8 mmol/L (3.5-5.1); PROTEIN - SERUM 5.9 g/dL (6.4-8.2)
[2018-04-26 04:42] VITALS: BP 161/84
== END 2018-04-26 04:43 | disposition home or self-care (01) ==
LOC: D.ER 02:20
PROVIDERS: Family Medicine
DX: L03.115 Cellulitis of right lower limb (principal); I10 Essential (primary) hypertension

== ENCOUNTER → 2018-05-07 09:05 | Outpatient (CLI) | payer MEDICARE, OTHER ==
[2018-04-26 02:25] VITALS: BMI 27.4
[~2018-05-07 09:05] MED LIST changes: +BACTRIM DS TABL1 TAB PO
[2018-05-07 09:41] LABS: HEMATOCRIT 40.2 % (42.0-54.0); HEMOGLOBIN 12.9 g/dL (13.5-17.5); MCH 28.7 pg (26.0-34.0); MCHC 32.1 g/dL (31.0-37.0); MCV 89.5 fL (80.0-100.0); MEAN PLATELET VOLUME 8.5 fL (7.4-10.4); RBC 4.49 10x6/uL (4.20-6.10); RDW 14.6 % (11.5-14.5); WBC 10.7 10x3/uL (4.8-10.8)
[2018-05-07 10:09] LABS: ALBUMIN 3.1 g/dL (3.4-5.0); ANION GAP 13.1 mmol/L (8-16); BILIRUBIN - TOTAL 0.56 mg/dL (0.2-1.3); CALCIUM 8.3 mg/dL (8.5-10.1); CARBON DIOXIDE 26.3 mmol/L (21.0-32.0); CREATININE - SERUM 1.3 mg/dL (0.6-1.3); POTASSIUM - SERUM 4.4 mmol/L (3.5-5.1); PROTEIN - SERUM 6.8 g/dL (6.4-8.2)
== END | disposition home or self-care (01) ==
LOC: D.RAD 08:30
PROVIDERS: Internal Medicine Cardiovascular Disease
DX: L76.82 Other postprocedural complications of skin and subcutaneous tissue (principal); D64.9 Anemia, unspecified; J91.8 Pleural effusion in other conditions classified elsewhere

== ENCOUNTER → 2019-06-25 09:55 | Outpatient (CLI) | payer MEDICARE, BC ==
[2018-04-26 02:25] VITALS: BMI 27.4
== END ==
LOC: D.HCCECHO 09:55 → D.HCCARDIO 10:30 → D.HCCECHO 10:30
PROVIDERS: ATTEND Internal Medicine Cardiovascular Disease
DX: I48.0 Paroxysmal atrial fibrillation (principal)

== ENCOUNTER → 2020-01-12 14:17 | Outpatient (CLI) | payer MEDICARE, BC ==
[2018-04-26 02:25] VITALS: BMI 27.4
== END | disposition home or self-care (01) ==
LOC: D.CT 14:17
PROVIDERS: ATTEND Internal Medicine Cardiovascular Disease
DX: I25.10 Atherosclerotic heart disease of native coronary artery without angina pectoris (principal); R07.9 Chest pain, unspecified; R06.00 Dyspnea, unspecified

== ENCOUNTER → 2021-01-25 13:51 | Outpatient (CLI) | payer MEDICARE, BC ==
[2018-04-26 02:25] VITALS: BMI 27.4
== END | disposition home or self-care (01) ==
LOC: D.HCCECHO 13:51
PROVIDERS: ATTEND Internal Medicine Cardiovascular Disease
DX: I25.10 Atherosclerotic heart disease of native coronary artery without angina pectoris (principal)